=== PATIENT | female | born 1965 | race African-American/Black ===

== ENCOUNTER 2017-05-16 08:35 | Emergency (ER) | payer SELFPAY ==
[~2017-05-16] VITALS: Ht 162.6 cm; Wt 61.8 kg
[2017-05-16 08:40] VITALS: BP 118/70; PULSE 77; RESP 18; TEMP 97.9; O2SAT 97
[2017-05-16] MEDS ORDERED: ONDANSETRON HCL 4 MG/2 ML VIAL IVP ONE (08:45)
[2017-05-16] MEDS ORDERED: SODIUM CHLORIDE 0.9% FLUSH 10 ML FLUSH IV FLUSH PRN (08:45)
[2017-05-16] MEDS ORDERED: SODIUM CHLOR 0.9% 1000 ML INJ 1,000 ML IV SCH (08:45)
[2017-05-16 08:47] VITALS: BP 118/70; PULSE 72; PULSE 73; RESP 18; TEMP 97.9; O2SAT 97
--- NOTE | 2017-05-16 08:48 | PD ---
HPI Chief Complaint: Abdominal Pain Time Seen by Provider: 08:45 Travel History International Travel<30 days: No Contact w/Intl Traveler<30days: No History of Present Illness HPI 52-year-old female patient presents to the ER today, complaining of one day history of nausea, vomiting, diarrhea, and states that she has had several days of flulike symptoms, dizziness. She denies any fevers or other issues. She states that her abdominal pain is diffuse, labeled 6 out of 10. She does not know any sick contacts. It just started this morning, she does not know any exacerbating or alleviating factors. Modifying Factors: None Associated Signs & Symptoms: Abdominal pains, nausea, vomiting, diarrhea, flulike symptoms, dizziness Risk Factors: None PFSH Social History Tobacco Use: No Allergies-Medications (Allergen,Severity, Reaction): Coded Allergies: No Known Allergies (Unverified , 05/16/17) Reported Meds & Prescriptions Reported Meds & Active Scripts Active No Active Prescriptions or Reported Medications Review of Systems Except as stated in HPI: all other systems reviewed are Neg Physical Exam Narrative GENERAL: Well-developed middle age -[place] female patient currently in mild distress. Awake and oriented 3. SKIN: Focused skin assessment warm/dry. HEAD: Atraumatic. Normocephalic. EYES: Pupils equal and round. No scleral icterus. No injection or drainage. ENT: No nasal bleeding or discharge. Mucous membranes pink and moist. NECK: Trachea midline. No JVD. CARDIOVASCULAR: Regular rate and rhythm. No murmur appreciated. RESPIRATORY: No accessory muscle use. Clear to auscultation. Breath sounds equal bilaterally. GASTROINTESTINAL: Abdomen soft, mild diffuse abdominal tenderness without guarding or rebound, nondistended. Hepatic and splenic margins not palpable. MUSCULOSKELETAL: No obvious deformities. No clubbing. No cyanosis. No edema. NEUROLOGICAL: Awake and alert. No obvious cranial nerve deficits. Motor grossly within normal limits. Normal speech. No pronator drift. Normal [place]. PSYCHIATRIC: Appropriate mood and affect; insight and judgment normal. Data Data Last Documented VS Vital Signs Date Time Temp Pulse Resp B/P (MAP) Pulse Ox O2 Delivery O2 Flow Rate FiO2 05/16/17 08:54 05/16/17 08:47 97.9 73 18 97 Room Air Orders Orders Complete Blood Count With Diff (05/16/17 08:45) Comprehensive Metabolic Panel (05/16/17 08:45) Lipase (05/16/17 08:45) Urinalysis - C+S If Indicated (05/16/17 08:45) Iv Access Insert/Monitor (05/16/17 08:45) Ecg Monitoring (05/16/17 08:45) Oximetry (05/16/17 08:45) Ondansetron Inj (Zofran Inj) (05/16/17 08:45) Sodium Chlor 0.9% 1000 Ml Inj (Ns 1000 M (05/16/17 08:45) Sodium Chloride 0.9% Flush (Ns Flush) (05/16/17 08:45) Influenzae A/B Antigen (05/16/17 08:45) Promethazine Inj (Phenergan Inj) (05/16/17 10:00) Meclizine (Antivert) (05/16/17 10:45) Labs Laboratory Tests Test 05/16/17 08:54 05/16/17 09:13 White Blood Count 10.9 TH/MM3 Red Blood Count 4.75 MIL/MM3 Hemoglobin 14.2 GM/DL Hematocrit 41.8 % Mean Corpuscular Volume 87.9 FL Mean Corpuscular Hemoglobin 30.0 PG Mean Corpuscular Hemoglobin Concent 34.1 % Red Cell Distribution Width 12.8 % Platelet Count 177 TH/MM3 Mean Platelet Volume 9.8 FL Neutrophils (%) (Auto) 81.0 % Lymphocytes (%) (Auto) 14.3 % Monocytes (%) (Auto) 3.7 % Eosinophils (%) (Auto) 0.7 % Basophils (%) (Auto) 0.3 % Neutrophils # (Auto) 8.8 TH/MM3 Lymphocytes # (Auto) 1.6 TH/MM3 Monocytes # (Auto) 0.4 TH/MM3 Eosinophils # (Auto) 0.1 TH/MM3 Basophils # (Auto) 0.0 TH/MM3 CBC Comment DIFF FINAL Differential Comment Blood Urea Nitrogen 16 MG/DL Creatinine 0.74 MG/DL Random Glucose 157 MG/DL Total Protein 7.8 GM/DL Albumin 3.8 GM/DL Calcium Level 9.5 MG/DL Alkaline Phosphatase 70 U/L Aspartate Amino Transf (AST/SGOT) 18 U/L Alanine Aminotransferase (ALT/SGPT) 20 U/L Total Bilirubin 0.6 MG/DL Sodium Level 137 MEQ/L Potassium Level 4.0 MEQ/L Chloride Level 104 MEQ/L Carbon Dioxide Level 25.5 MEQ/L Anion Gap 8 MEQ/L Estimat Glomerular Filtration Rate 101 ML/MIN Lipase 94 U/L Urine Color YELLOW Urine Turbidity HAZY Urine pH 5.0 Urine Specific [place] 1.035 Urine Protein 30 mg/dL Urine Glucose (UA) NEG mg/dL Urine Ketones 10 mg/dL Urine Occult Blood NEG Urine Nitrite NEG Urine Bilirubin NEG Urine Urobilinogen LESS THAN 2.0 MG/DL Urine Leukocyte Esterase NEG Urine RBC LESS THAN 1 /hpf Urine WBC 3 /hpf Urine Squamous Epithelial Cells 21 /hpf Urine Bacteria OCC /hpf Urine Mucus MANY /lpf Microscopic Urinalysis Comment CULT NOT INDICATED MDM Medical Decision Making Medical Screen Exam Complete: Yes Emergency Medical Condition: Yes Medical Record Reviewed: Yes Interpretation(s) Laboratory Tests Test 05/16/17 08:54 05/16/17 09:13 Neutrophils (%) (Auto) 81.0 % (16.0-70.0) Neutrophils # (Auto) 8.8 TH/MM3 (1.8-7.7) Random Glucose 157 MG/DL (74-106) Urine Turbidity HAZY (CLEAR) Urine Protein 30 mg/dL (NEG-TRACE) Urine Ketones 10 mg/dL (NEG) Urine Bacteria OCC /hpf (NONE) Urine Mucus MANY /lpf (OCC) Differential Diagnosis Nausea, vomiting, diarrhea, flulike symptoms, abdominal pains: Gastroenteritis versus influenza versus dehydration versus metabolic issues versus gastritis versus pancreatitis Narrative Course Abdomen is benign and I do not suspect an acute intra-abdominal process. Her lab work is fairly unremarkable. She does not have influenza. At this point, patient has been given IV fluids, Zofran, and on reevaluation at 9:50 AM, she is still having nausea and Phenergan was also given. Vital signs are stable in the ER. She is also complaining of some dizziness and spinning when she moves, and I wonder if there is an underlying vertigo component. Meclizine was given. On reevaluation at 11 AM, she is doing well, had no further vomiting episodes in the ER, has no focal neurological deficits, and I do not think that this is a stroke or other acute process. My plan would be to release her with symptomatic relief and follow-up to primary care doctor. Return for any worsening in symptoms as needed. The plan has been discussed with her and she states understanding. Diagnosis Primary Impression: Gastroenteritis Additional Impression: Dizziness Med/Other Pt SpecificInfo: Prescription(s) given Scripts Ondansetron Odt (Zofran Odt) 4 Mg Tab 4 MG SL Q6HR Y for Nausea/Vomiting, #7 TAB 0 Refills Prov: Scout Mccauley MD 05/16/17 Meclizine (Meclizine) 25 Mg Tab 25 MG PO DIRECTED Y for VERTIGO, #7 TAB 0 Refills Prov: Scout Mccauley MD 05/16/17 Disposition: 01 DISCHARGE HOME Condition: Stable Scout Mccauley MD May 16, 2017 08:48
[2017-05-16 09:11] LABS: AUTOMATED NEUTROPHIL # 8.8 TH/MM3 (1.8-7.7); BASOPHIL % 0.3 % (0.0-2.0); EOSINOPHIL # 0.1 TH/MM3 (0-0.4); EOSINOPHIL % 0.7 % (0.0-4.0); HEMATOCRIT 41.8 % (35.0-46.0); HEMOGLOBIN 14.2 GM/DL (11.6-15.3); LYMPH % 14.3 % (9.0-44.0); LYMPHOCYTE # 1.6 TH/MM3 (1.0-4.8); MEAN CELL VOLUME 87.9 FL (80.0-100.0); MEAN CORPUSCULAR HGB CONC 34.1 % (32.0-36.0); MEAN PLATELET VOLUME 9.8 FL (7.0-11.0); MONO % 3.7 % (0.0-8.0); MONOCYTE # 0.4 TH/MM3 (0-0.9); PLATELET COUNT 177 TH/MM3 (150-450); RED BLOOD COUNT 4.75 MIL/MM3 (4.00-5.30); RED CELL DISTRIBUTION WIDTH 12.8 % (11.6-17.2); WHITE BLOOD COUNT 10.9 TH/MM3 (4.0-11.0)
[2017-05-16 09:28] LABS: ALBUMIN 3.8 GM/DL (3.4-5.0); AST (GOT) 18 U/L (15-37); BICARBONATE 25.5 MEQ/L (21.0-32.0); BLOOD UREA NITROGEN 16 MG/DL (7-18); CALCIUM 9.5 MG/DL (8.5-10.1); CHLORIDE 104 MEQ/L (98-107); CREATININE 0.74 MG/DL (0.50-1.00); GLOMERULAR FILTRATION RATE 101 ML/MIN (>89); GLUCOSE,RANDOM 157 MG/DL (74-106); LIPASE 94 U/L (73-393); SODIUM (NA) 137 MEQ/L (136-145)
[2017-05-16 09:29] LABS: ALT (GPT) 20 U/L (10-53)
[2017-05-16 09:32] LABS: ALKALINE PHOSPHATASE 70 U/L (45-117); TOTAL BILIRUBIN ADULT 0.6 MG/DL (0.2-1.0); TOTAL PROTEIN 7.8 GM/DL (6.4-8.2)
[2017-05-16 09:45] LABS: BACTERIA, URINE OCC /hpf; BILIRUBIN, URINE NEG (NEG); BLOOD, URINE NEG (NEG); GLUCOSE,URINE NEG (NEG); KETONE, URINE 10 mg/dL (NEG); MUCUS URINE MANY /lpf (OCC); NITRITE,URINE NEG (NEG); SQUAMOUS EPITHELIAL CELL URINE 21 /hpf (0-5); URINE COLOR YELLOW (YELLW/STRAW); URINE LEUKOCYTE ESTERASE NEG (NEG)
[2017-05-16] MEDS ORDERED: PROMETHAZINE INJ 25 MG/ML VIAL IM ONE (10:00)
[2017-05-16] MEDS ORDERED: MECLIZINE HCL 25 MG TAB PO ONE (10:45)
[2017-05-16] MEDS ORDERED: ZOFR4TAB3 SL (11:06)
[2017-05-16] MEDS ORDERED: MECL-62 PO (11:06)
== END 2017-05-16 09:00 | disposition home or self-care (01) ==
LOC: NEPC 08:35
DX: K52.9 Noninfective gastroenteritis and colitis, unspecified (principal); R42 Dizziness and giddiness
CPT/HCPCS: 80053; 81001; 83690; 85025; 87804; 96361; 96372; 96374; 99284; J2405; J2550; J7030